=== PATIENT | female | born 1990 | race Caucasian/White ===

== ENCOUNTER 2018-04-11 07:05 | Inpatient (IN) | END 2018-04-14 14:05 | disposition home or self-care (01) | DRG 775 ==

== ENCOUNTER 2019-06-21 17:16 | Outpatient (CLI) | payer MEDICAID ==
[~2019-06-21] VITALS: Ht 154.9 cm; Wt 60.6 kg
[~2019-06-21 17:16] MED LIST: PREN1TAB79 PO
[2019-06-21 18:20] VITALS: Ht 154.9 cm; Wt 60.6 kg
== END 2019-06-21 21:47 | disposition home or self-care (01) ==
LOC: OBT 17:16 → L-D 17:17 → OBT 21:47
PROVIDERS: ATTEND Obstetrics & Gynecology
DX: O26.893 Other specified pregnancy related conditions, third trimester (principal); Z3A.33 33 weeks gestation of pregnancy; R10.2 Pelvic and perineal pain
CPT/HCPCS: 76815; 76817; 76818; Z7500; Z7610; G0463

== ENCOUNTER 2019-06-22 09:33 | Inpatient (IN) | payer MEDICAID ==
[~2019-06-22] VITALS: Ht 154.9 cm; Wt 62.0 kg
[2019-06-22] MEDS ORDERED: MAGNESIUM SULFATE 4 GM/100 ML 100 ML IV ONE (10:00)
[2019-06-22] MEDS ORDERED: DOCUSATE SODIUM 100 MG CAP PO PRN (10:00)
[2019-06-22] MEDS ORDERED: AL HYDROX/MG HYDROX/SIMETH 30 ML CUP PO PRN (10:00)
[2019-06-22] MEDS ORDERED: ONDANSETRON 4 MG INJ IV PRN (10:00)
[2019-06-22] MEDS ORDERED: ACETAMINOPHEN 325 MG TAB PO PRN (10:00)
[2019-06-22] MEDS: LACTATED RINGER'S 1,000 ML IV SCH ×2 (10:08→20:04)
[2019-06-22] MEDS: MAGNESIUM SULFATE 20 GM/500 ML 500 ML IV SCH ×2 (10:18→20:07)
[2019-06-22] MEDS: BETAMET NA PHOS/AC(6 MG/ML) 2 ML INJ SYG IM SCH (10:50)
[2019-06-22] MEDS ORDERED: CEFAZOLIN 2 GM/50 ML (PMX) 50 ML IVPB SCH (11:00)
[2019-06-22] MEDS ORDERED: morphine 2 MG INJ IV STA (11:53)
[2019-06-22] MEDS ORDERED: AMPICILLIN 2 GM/NS (PMX) 100 ML IVPB ONE (13:00)
[2019-06-22] MEDS ORDERED: BUTORPHANOL 2 MG INJ IV PRN (14:00)
[2019-06-22] MEDS: AZITHROMYCIN 500 MG in SOD CHLORIDE 0.9% 250 ML IVPB SCH (14:51)
[2019-06-22] MEDS: AMPICILLIN 1 GM/NS (PMX) 50 ML IVPB SCH ×2 (17:00→21:01)
[2019-06-23] MEDS: AMPICILLIN 1 GM/NS (PMX) 50 ML IVPB SCH ×6 (01:01→21:46)
[2019-06-23] MEDS: LACTATED RINGER'S 1,000 ML IV SCH ×3 (01:52→17:54)
[2019-06-23] MEDS: MAGNESIUM SULFATE 20 GM/500 ML 500 ML IV SCH ×3 (05:52→17:54)
[2019-06-23] MEDS: AZITHROMYCIN 500 MG in SOD CHLORIDE 0.9% 250 ML IVPB SCH (09:54)
[2019-06-23] MEDS: PRENATAL VITAMIN PO SCH (09:54)
[2019-06-23] MEDS: DOCUSATE SODIUM 100 MG CAP PO PRN (09:55)
[2019-06-23] MEDS: BETAMET NA PHOS/AC(6 MG/ML) 2 ML INJ SYG IM SCH (11:00)
[2019-06-23 14:44] VITALS: Ht 154.9 cm; Wt 62.0 kg
[2019-06-23 14:46] VITALS: BP 97/61; PULSE 86; RESP 20
[2019-06-24] MEDS: AMPICILLIN 1 GM/NS (PMX) 50 ML IVPB SCH ×6 (01:46→22:48)
[2019-06-24] MEDS: MAGNESIUM SULFATE 20 GM/500 ML 500 ML IV SCH ×2 (03:44→21:52)
[2019-06-24] MEDS: LACTATED RINGER'S 1,000 ML IV SCH ×3 (06:03→18:34)
[2019-06-24] MEDS: DOCUSATE SODIUM 100 MG CAP PO PRN (11:05)
[2019-06-24] MEDS: PRENATAL VITAMIN PO SCH (11:06)
[2019-06-24] MEDS: AZITHROMYCIN 500 MG in SOD CHLORIDE 0.9% 250 ML IVPB SCH (11:48)
[2019-06-25] MEDS: LACTATED RINGER'S 1,000 ML IV SCH ×2 (02:15→17:49)
[2019-06-25] MEDS: AMPICILLIN 1 GM/NS (PMX) 50 ML IVPB SCH ×6 (02:15→20:42)
[2019-06-25] MEDS: PRENATAL VITAMIN PO SCH (09:13)
[2019-06-25] MEDS: AZITHROMYCIN 500 MG in SOD CHLORIDE 0.9% 250 ML IVPB SCH (11:59)
[2019-06-26] MEDS: LACTATED RINGER'S 1,000 ML IV SCH ×5 (00:43→23:28)
[2019-06-26] MEDS: AMPICILLIN 1 GM/NS (PMX) 50 ML IVPB SCH ×6 (00:43→23:01)
[2019-06-26] MEDS: DOCUSATE SODIUM 100 MG CAP PO PRN (09:41)
[2019-06-26] MEDS: PRENATAL VITAMIN PO SCH (09:41)
[2019-06-26] MEDS ORDERED: MISOPROSTOL 200 MCG TAB PR PRN ×2 (11:00→14:30)
[2019-06-26] MEDS ORDERED: METHYLERGONOVINE 0.2 MG INJ IM PRN ×2 (11:00→14:30)
[2019-06-26] MEDS ORDERED: OXYTOCIN 30 UNITS/LR 500 ML IV PRN ×2 (11:00→14:30)
[2019-06-26] MEDS ORDERED: LIDOCAINE 1% (MPF) 30 ML INJ INJ PRN ×2 (11:00→14:30)
[2019-06-26] MEDS ORDERED: OXYTOCIN 30 UNITS/LR 500 ML IV SCH ×4 (11:00→14:30)
[2019-06-26] MEDS ORDERED: IBUPROFEN 600 MG TAB PO PRN (11:00)
[2019-06-26] MEDS ORDERED: CARBOPROST 250 MCG INJ IM PRN ×2 (11:00→14:30)
[2019-06-26] MEDS: OXYTOCIN 30 UNITS/LR 500 ML IV SCH (15:25)
[2019-06-26] MEDS ORDERED: FENTAnyl 2MCG/ML-ROPIV 0.2% 100 ML ONE (22:32)
[2019-06-26] MEDS ORDERED: NALOXONE (0.4 MG/ML) INJ IV PRN (23:00)
[2019-06-27] MEDS: AMPICILLIN 1 GM/NS (PMX) 50 ML IVPB SCH ×3 (02:35→11:50)
[2019-06-27] MEDS: FENTAnyl 2MCG/ML-ROPIV 0.2% 100 ML BAG EPI SCH ×2 (07:15→15:26)
[2019-06-27] MEDS: LACTATED RINGER'S 1,000 ML IV SCH ×2 (07:20→15:23)
[2019-06-27] MEDS: OXYTOCIN 30 UNITS/LR 500 ML IV SCH (13:48)
[2019-06-27 20:25] VITALS: BP 135/84; PULSE 56; RESP 20
[2019-06-27] MEDS: LACTATED RINGER'S 1,000 ML IV* SCH (20:33)
[2019-06-27] MEDS ORDERED: METHYLERGONOVINE 0.2 MG INJ IM PRN (21:00)
[2019-06-27] MEDS ORDERED: ACETAMINOPHEN 325 MG TAB PO PRN (21:00)
[2019-06-27] MEDS ORDERED: WITCH HAZEL/GLYCERIN PAD PR PRN (21:00)
[2019-06-27] MEDS ORDERED: BENZOCAINE 20% 56 ML SPRAY TOP PRN (21:00)
[2019-06-27] MEDS ORDERED: HYDROCODONE/APAP (5/325) TAB PO PRN (21:00)
[2019-06-27] MEDS ORDERED: DIBUCAINE 1% 30 GM OINT TOP PRN (21:00)
[2019-06-27] MEDS ORDERED: OXYTOCIN 30 UNITS/LR 500 ML IV PRN (21:00)
[2019-06-27] MEDS ORDERED: MISOPROSTOL 200 MCG TAB PR PRN (21:00)
[2019-06-27] MEDS ORDERED: CARBOPROST 250 MCG INJ IM PRN (21:00)
[2019-06-27] MEDS: SENNA/DOCUSATE NA (8.6MG/50MG) TAB PO SCH (21:15)
[2019-06-27] MEDS: IBUPROFEN 600 MG TAB PO SCH (23:43)
[2019-06-28 03:59] VITALS: BP 108/69; PULSE 60; RESP 20
[2019-06-28] MEDS: LACTATED RINGER'S 1,000 ML IV* SCH ×2 (04:33→12:33)
[2019-06-28] MEDS: IBUPROFEN 600 MG TAB PO SCH ×3 (06:09→17:15)
[2019-06-28 08:00] VITALS: BP 96/60; PULSE 83; RESP 16
[2019-06-28] MEDS: SENNA/DOCUSATE NA (8.6MG/50MG) TAB PO SCH ×2 (08:59→21:41)
[2019-06-28 16:25] VITALS: BP 106/72; PULSE 74; RESP 18
[2019-06-28 19:40] VITALS: BP 106/69; PULSE 68; RESP 20
[2019-06-29 04:31] VITALS: BP 101/58; PULSE 61; RESP 20
[2019-06-29] MEDS: IBUPROFEN 600 MG TAB PO SCH ×3 (06:00→11:38)
[2019-06-29 07:30] VITALS: BP 112/78; PULSE 56; RESP 18
[2019-06-29] MEDS: SENNA/DOCUSATE NA (8.6MG/50MG) TAB PO SCH (08:39)
[2019-06-29] MEDS ORDERED: DIPHTH/TET/ACEL PERTUSS (ADULT) 0.5 ML VIAL IM* ONE (09:00)
[2019-06-29 15:32] VITALS: BP 120/76; PULSE 71; RESP 18
== END 2019-06-29 17:00 | disposition home or self-care (01) | DRG 807 ==
LOC: OBT 09:33 → L-D 09:34 → OBT 09:45 → L-D 06-26 13:33 → MS1 06-27 21:12
PROVIDERS: ADMIT Obstetrics & Gynecology; ATTEND Obstetrics & Gynecology
PROC: 10E0XZZ Delivery of Products of Conception, External Approach (ICD-10-PCS; principal; 2019-06-27)
PROC: 0HQ9XZZ Repair Perineum Skin, External Approach (ICD-10-PCS; 2019-06-27)
DX: O60.14X0 Preterm labor third trimester with preterm delivery third trimester, not applicable or unspecified (principal); Z37.0 Single live birth; O42.013 Preterm premature rupture of membranes, onset of labor within 24 hours of rupture, third trimester; O70.0 First degree perineal laceration during delivery; Z3A.33 33 weeks gestation of pregnancy
CPT/HCPCS: 62322; 76815; 80307; 81001; 83735; 85025; 85610; 85730; 86592; 86850; 86900; 86901; 87086; 88307; 90715; 99464; G0463; J0290; J0456; J0595; J0690; J0702; J2210; J2270; J2405; J2590; J3010; J3475; J7050; J7120